=== PATIENT | female | born 1955 | race Caucasian/White ===

== ENCOUNTER 2022-10-03 15:48 | Observation (INO) | payer OTHER ==
[2022-10-03 16:01] VITALS: BMI 33.3
[2022-10-03] MEDS ORDERED: MAG HYDROX/AL HYDROX/SIMETH 30 ML UNIT-DOSE CUP PO ONE (16:18)
[2022-10-03] MEDS ORDERED: PANTOPRAZOLE SODIUM 40 MG VIAL IVPUSH ONE (16:18)
[2022-10-03] MEDS ORDERED: PANTOPRAZOLE SODIUM 40 MG VIAL ONE (16:46)
[2022-10-03] MEDS ORDERED: MAG HYDROX/AL HYDROX/SIMETH 30 ML UNIT-DOSE CUP ONE (16:46)
[2022-10-03 17:01] LABS: BASO % 0.2 % (0-2.0); HEMATOCRIT 41.1 % (32.4-45.2); HEMOGLOBIN 13.8 GM/dL (10.7-15.3); LYMPH % 34.1 % (8-40); MCH 29.2 pg (25.7-33.7); MCHC 33.6 g/dl (32.0-36.0); MEAN CELL VOLUME 86.9 fl (80-96); MEAN PLT VOLUME 7.1 fl (7.5-11.1); MONO % 9.3 % (3.8-10.2); NEUT % 55.4 % (42.8-82.8); PLATELET COUNT 239 10^3/uL (134-434); RBC 4.73 M/mm3 (3.60-5.2); RDW 13.5 % (11.6-15.6); WHITE BLOOD COUNT 6.7 K/mm3 (4.0-10.0)
[2022-10-03 17:14] LABS: INR 3.21 (0.83-1.09); PROTHROMBIN TIME (PATIENT) 37.4 SEC (9.7-13.0)
[2022-10-03 17:22] LABS: ALBUMIN 3.5 g/dl (3.4-5.0); CALCIUM 8.4 mg/dL (8.5-10.1)
[2022-10-03 17:23] LABS: BLOOD UREA NITROGEN 17.5 mg/dL (7-18)
[2022-10-03 17:25] LABS: CREATININE 0.9 mg/dL (0.55-1.3)
[2022-10-03 17:27] LABS: BILIRUBIN,TOTAL 0.3 mg/dL (0.2-1); TOT PROT 6.2 g/dl (6.4-8.2)
[2022-10-03] MEDS ORDERED: ASPIRIN 81 MG CHEWABLE TABLETS PO ONE (17:45)
[2022-10-03] MEDS ORDERED: LACTATED RINGERS SOLUTION 1,000 ML/1,000 ML INFUS.BAG IV SCH (17:45)
[2022-10-03 18:13] LABS: MAGNESIUM 1.8 mg/dL (1.8-2.4)
[2022-10-03] MEDS ORDERED: POTASSIUM CHLORIDE TABS 10 MEQ TABLET.ER (FP) PO ONE (18:16)
[2022-10-03] MEDS ORDERED: POTASSIUM CHLORIDE TABS 20 MEQ TABLET.ER (FP) PO ONE ×2 (18:18→19:18)
[2022-10-03] MEDS ORDERED: ASPIRIN 81 MG CHEWABLE TABLETS ONE (19:19)
[2022-10-03] MEDS ORDERED: SIMETHICONE 80 MG TAB.CHEW (FP) PO PRN (22:19)
[2022-10-04 01:09] LABS: EPI CELLS 0 /uL (0-25.1); HYALINE CASTS 0 /uL (0-3.1); URINE APPEARANCE CLEAR; URINE BACTERIA 0 /uL (0-1359); URINE BILIRUBIN NEGATIVE (NEGATIVE); URINE COLOR YELLOW; URINE GLUCOSE (UA) NEGATIVE (NEGATIVE); URINE KETONE NEGATIVE (NEGATIVE); URINE LEUK ESTERASE NEGATIVE (NEGATIVE); URINE NITRITE NEGATIVE (NEGATIVE); URINE PROTEIN NEGATIVE (NEGATIVE); URINE RBC 1 /uL (0-23.9); URINE UROBILINOGEN 0.2 mg/dL (0.2-1.0); URINE WBC 6 /uL (0-25.8)
[2022-10-04] MEDS ORDERED: SIMETHICONE 80 MG TAB.CHEW (FP) PO ONE (02:49)
[2022-10-04 07:54] LABS: BASO % 0.4 % (0-2.0); EOS % 1.3 % (0-4.5); HEMATOCRIT 39.4 % (32.4-45.2); HEMOGLOBIN 13.2 GM/dL (10.7-15.3); LYMPH % 31.6 % (8-40); MCH 28.9 pg (25.7-33.7); MCHC 33.5 g/dl (32.0-36.0); MEAN CELL VOLUME 86.4 fl (80-96); MEAN PLT VOLUME 6.8 fl (7.5-11.1); MONO % 7.5 % (3.8-10.2); NEUT % 59.2 % (42.8-82.8); PLATELET COUNT 215 10^3/uL (134-434); RBC 4.56 M/mm3 (3.60-5.2); RDW 13.5 % (11.6-15.6); WHITE BLOOD COUNT 5.8 K/mm3 (4.0-10.0)
[2022-10-04 08:12] LABS: ALBUMIN 3.2 g/dl (3.4-5.0); BLOOD UREA NITROGEN 11.1 mg/dL (7-18); CALCIUM 8.4 mg/dL (8.5-10.1); MAGNESIUM 1.9 mg/dL (1.8-2.4)
[2022-10-04 08:15] LABS: CREATININE 0.7 mg/dL (0.55-1.3); PHOSPHOROUS 3.3 mg/dL (2.5-4.9)
[2022-10-04 08:17] LABS: TOT PROT 5.7 g/dl (6.4-8.2)
[2022-10-04 08:29] VITALS: RESP 16
[2022-10-04 08:33] LABS: BILIRUBIN,TOTAL 0.4 mg/dL (0.2-1)
[2022-10-04 09:02] LABS: INR 3.31 (0.83-1.09); PROTHROMBIN TIME (PATIENT) 38.5 SEC (9.7-13.0)
[2022-10-04] MEDS ORDERED: ATENOLOL 25 MG TABLET (FP) PO SCH (10:00)
[2022-10-04] MEDS ORDERED: LAMOTRIGINE 250 MG PO SCH (10:00)
[2022-10-04] MEDS ORDERED: FLUoxetine HCL 20 MG CAPSULE PO SCH (10:00)
[2022-10-04] MEDS ORDERED: LAMOTRIGINE 200 MG, LAMOTRIGINE 50 MG PO SCH ×2 (12:00)
[2022-10-04] MEDS ORDERED: lamoTRIgine 100 MG TABLET ONE (13:42)
[2022-10-04] MEDS ORDERED: lamoTRIgine 25 MG TABLET ONE (13:42)
[2022-10-04 14:39] VITALS: BP 112/68; PULSE 65; TEMP 97.9
[2022-10-04] MEDS ORDERED: WARFARIN NA 3 MG TABLET PO SCH (18:00)
== END 2022-10-04 15:40 | disposition home or self-care (01) ==
LOC: JER 15:48 → JERBED 19:46
PROVIDERS: ADMIT Internal Medicine
PROC: 3E0337Z Introduction of Electrolytic and Water Balance Substance into Peripheral Vein, Percutaneous Approach (ICD-10-PCS; principal; 2022-10-03)
PROC: 3E033GC Introduction of Other Therapeutic Substance into Peripheral Vein, Percutaneous Approach (ICD-10-PCS; 2022-10-03)
DX: R07.9 Chest pain, unspecified (principal); B96.89 Other specified bacterial agents as the cause of diseases classified elsewhere; G40.A09 Absence epileptic syndrome, not intractable, without status epilepticus; R19.7 Diarrhea, unspecified; I48.91 Unspecified atrial fibrillation; Z79.01 Long term (current) use of anticoagulants; R10.13 Epigastric pain; Z88.0 Allergy status to penicillin; E66.8 Other obesity; Z68.33 Body mass index [BMI] 33.0-33.9, adult; Z29.8 Encounter for other specified prophylactic measures; E83.42 Hypomagnesemia; E87.6 Hypokalemia; I21.4 Non-ST elevation (NSTEMI) myocardial infarction; K21.9 Gastro-esophageal reflux disease without esophagitis; K58.9 Irritable bowel syndrome, unspecified; M19.90 Unspecified osteoarthritis, unspecified site
CPT/HCPCS: 0241U-QW; 36415; 71046-TC-FY; 74177-TC; 80053; 81003; 83735; 84100; 84484; 85025; 85610; 86850; 86900; 86901; 87086; 93005; 93010; 93306-TC; 96361; 96374; 99285-25; G0378; Q9967